=== PATIENT | male | born 1955 | race Caucasian/White ===

== ENCOUNTER 2020-12-01 06:50 | Emergency (ER) | payer OTHER ==
[~2020-12-01] VITALS: Ht 182.9 cm; Wt 77.1 kg
--- NOTE | 2020-12-01 07:08 | NUR ---
Said examining patient.
[2020-12-01] MEDS: AZITHROMYCIN 500 MG in DEXTROSE 5% 250 ML IV ONE (07:10)
[2020-12-01] MEDS: methylPREDNISolone SS 125 MG/2 ML VIAL IVP ONE (07:10)
--- NOTE | 2020-12-01 07:13 | NUR ---
PT TAKEN TO BED 1
[2020-12-01] MEDS: NACL 0.9% 1,000 ML IV ONE (07:15)
[2020-12-01 07:18] VITALS: BP 143/92
--- NOTE | 2020-12-01 07:18 | NUR ---
RT AT PT BEDSIDE.
[2020-12-01] MEDS: ALBUTEROL SULFATE/IPRATROPIU 3 ML SOL IH ONE (07:22)
[2020-12-01] MEDS ORDERED: cefTRIAXone 1,000 MG VIAL ONE (07:23)
--- NOTE | 2020-12-01 07:24 | NUR ---
ABG COMPLETED Addendum: 12/01/20 at 0731 by [facility] ROOM AIR X 5 MINS
--- NOTE | 2020-12-01 07:26 | NUR ---
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 RT AT PT BEDSIDE ON ARRIVAL, SP02 AT 100% ON 2L NC. LUNG SOUNDS ARE CLEAR AND DIMINISHED THROUGHOUT, TACHYPNIC. DENIES N/V, DENIES FEVER/CHILLS. PMH: COPD (2LNC HOME 02) VISHALA
--- NOTE | 2020-12-01 07:27 | NUR ---
[facility] THERAPY AND RESPIRATORY DRUG GIVEN ORDERED
--- NOTE | 2020-12-01 07:30 | NUR ---
PT MOVED ARM DURING IV INSERTION, YELLED "DON'T TOUCH ME AGAIN, NOT YOU ANY NURSE OR MD". PT REFUSING TREATMENT BUT ALLOWING THEO VIVEROS AND THEO VELEZ. WALKED TO LAB, SAID MADE AWARE.
--- NOTE | 2020-12-01 07:40 | NUR ---
EMT AT PT BEDSIDE FOR EKG.
--- NOTE | 2020-12-01 08:49 | NUR ---
PT SIGENED AMA FORM. MD MADE AWARE AT PT BEDSIDE FOR FURTHER EXPLAINING.
[2020-12-01] MEDS ORDERED: IBUP-2213 PO (08:54)
[2020-12-01 08:58] VITALS: BP 140/90
== END 2020-12-01 08:49 | disposition left against medical advice (07) ==
LOC: MED 06:50
DX: J96.92 Respiratory failure, unspecified with hypercapnia (principal); E87.4 Mixed disorder of acid-base balance; J44.1 Chronic obstructive pulmonary disease with (acute) exacerbation; Z20.822 Contact with and (suspected) exposure to COVID-19
CPT/HCPCS: 36600; 71045; 82803; 87426; 93005; 94640; 99285; J0696; J2930; Q0092; U0003